=== PATIENT | female | born 1965 | race Two or more races ===

== ENCOUNTER 2019-07-01 12:45 | Emergency (ER) | payer OTHER ==
[~2019-07-01] VITALS: Ht 162.6 cm; Wt 61.7 kg
[~2019-07-01 12:45] MED LIST: NAPR-514 PO; TAMS0.4C97 PO; TRAM50TA PO
--- NOTE | 2019-07-01 13:11 | PHYS DOC ---
Past History Past Medical History: No Pertinent History Past Surgical History: No Surgical History Alcohol Use: Rarely Drug Use: None Adult General Chief Complaint Chief Complaint: Palpitations HPI HPI 54-year-old female presenting the emergency department today with palpitations. She has a history of palpitations in the past. Today she was exercising however after exercising her heart rate would not come down and she was having shortness of breath. She denies any chest pain, just describes palpitations. Onset today. Location chest. Duration intermittent. No alleviating factors. She denies unilateral leg swelling hemoptysis recent surgery or immobilization. She denies history of DVT or PE. Review of systems is negative for chest pain abdominal pain vomiting headache lightheadedness. She denies sick be. All other review of systems negative. ED course: 54-year-old female presenting with palpitations. On arrival patient's heart rate was about 115. Heart rate came down in the emergency department with IV fluids. EKG and blood work ordered along with chest x-ray and d-dimer. X-ray unremarkable. EKG obtained and reviewed by myself shows sinus rhythm with a regular rate. ST segments congruent. Not suggestive of ACS. D-dimer within normal limits. Potassium and magnesium are mildly low. We will give the patient oral repletion of potassium and magnesium. We'll have her follow-up with her primary doctor 1-2 days. She'll need repeat potassium magnesium levels over the next few weeks. HEART SCORE History Slightly suspicious 0 Moderately suspicious +1 Highly suspicious +2 EKG 1 point: No ST depression but LBBB, LVH, repolarization changes (ex: digoxin); 2 points: ST depression/elevation not due to LBBB, LVH, or digoxin Normal 0 Non-specific repolarization disturbance +[address] depression +2 Age <45 0 45-65 +1 65 +2 Risk factors Risk factors: HTN, hypercholesterolemia, DM, obesity (BMI >30 kg/m), smoking (current, or smoking cessation 3 mo), positive family history (parent or sibling with CVD before age 65); atherosclerotic disease: prior IN, PCI/CABG, CVA/TIA, or peripheral arterial disease No known risk factors 0 1-2 risk factors +1 3 risk factors or history of atherosclerotic disease +2 Initial troponin Use local assays and corresponding cutoffs normal limit 0 1-2 normal limit +1 >2 normal limit +2 Total 1 points Wells Score Clinical signs and symptoms of DVT No 0 Yes +3 PE is #1 diagnosis OR equally likely No 0 Yes +3 Heart rate > 100 No 0 Yes +1.5 Immobilization at least 3 days OR surgery in the previous 4 weeks No 0 Yes +1.5 Previous, objectively diagnosed PE or DVT No 0 Yes +1.5 Hemoptysis No 0 Yes +1 Malignancy w/ treatment within 6 months or palliative No 0 Yes +1 TOTAL 1.5 Points Allergies Allergies Allergies Coded Allergies Type Severity Reaction Last Updated Verified No Known Drug Allergies 10/21/15 No Physical Exam Physical Exam Constitutional: Well developed, well nourished, no acute distress, non-toxic appearance. [] HENT: Normocephalic, atraumatic, bilateral external ears normal, oropharynx moist, no oral exudates, nose normal. [] Eyes: PERRLA, EOMI, conjunctiva normal, no discharge. [] Neck: Normal range of motion, no tenderness, supple, no stridor. [] Cardiovascular: Tachycardic with a regular rhythm. No murmur. Lungs & Thorax: Bilateral breath sounds clear to auscultation []. No wheezing. Not in respiratory distress. Normal work of breathing. Abdomen: Bowel sounds normal, soft, no tenderness, no masses, no pulsatile masses. [] Skin: Warm, dry, no erythema, no rash. [] Back: No tenderness, no CVA tenderness. [] Extremities: No tenderness, no cyanosis, no clubbing, ROM intact, no edema. [] Neurologic: Alert and oriented X 3, normal motor function, normal sensory function, no focal deficits noted. [] Psychologic: Affect normal, judgement normal, mood normal. [] EKG EKG [] Radiology/Procedures Radiology/Procedures [] Course & Med Decision Making Course & Med Decision Making Pertinent Labs and Imaging studies reviewed. (See chart for details) [] Dragon Disclaimer Dragon Disclaimer This electronic medical record was generated, in whole or in part, using a voice recognition dictation system. Departure Departure: Impression: Primary Impression: Palpitations Disposition: 01 HOME, SELF-CARE Condition: STABLE Referrals: DLUGOPOLSKI,TC (PCP) Patient Instructions: Palpitations, [id number] Additional Instructions: Thank you for allowing us to participate in your care today. Return to the emergency department you have any new or worsening symptoms, or if you are concerned for any reason. Return to emergency department if you have any new or concerning symptoms including but not limited to fever, chills, nausea, vomiting, intractable pain, any new rashes, chest pain, shortness of air, uncontrolled bleeding, difficulty breathing, and/or vision loss. Follow up with your primary care physician within 1-2 days. Call your Primary Doctor tomorrow and inform them of your visit today. If you do not have a primary care provider we are happy to provide you with a list of our primary care providers contact information. This condition should be evaluated by your primary care physician and any recommended consulting services for continued management within 2 days after discharge. If at any time, you are having difficulty getting into your primary care doctor or a specialist, return to the emergency department. Scripts Potassium Chloride (K-Tab ER) 20 Meq Tablet.er 20 MEQ PO DAILY for low potassium for 10 Days, #10 TAB.SR Prov: ARYAN GLASS MD 07/01/19 Magnesium Oxide (MAGNESIUM) 400 Mg Capsule 1 CAP PO DAILY for LOW MAG for 30 Days, #30 CAP 0 Refills Prov: RAYAN GLASS MD 07/01/19 ARYAN GLASS MD Jul 01, 2019 13:11
[2019-07-01] MEDS ORDERED: IV NORMAL SALINE 1,000ML 1,000 ML IV ONE (13:15)
[2019-07-01 13:25] LABS: BASO % 1 % (0-3); EOS # 0.1 x10^3/uL (0.0-0.7); EOS % 2 % (0-3); HEMATOCRIT 39.5 % (36.0-47.0); HEMOGLOBIN 13.7 g/dL (12.0-15.5); LYMPH # 2.5 x10^3/uL (1.0-4.8); LYMPH % 43 % (24-48); MEAN CORPUSCULAR HEMOGLOBIN 31 pg (25-35); MEAN CORPUSCULAR HGB CONC 35 g/dL (31-37); MEAN CORPUSCULAR VOLUME 90 fL (79-100); MONO # 0.3 x10^3/uL (0.0-1.1); MONO % 5 % (0-9); NEUT # 2.9 x10^3uL (1.8-7.7); NEUT % 50 % (31-73); PLATELET COUNT 294 x10^3/uL (140-400); RED BLOOD COUNT 4.39 x10^6/uL (3.50-5.40); RED CELL DISTRIBUTION WIDTH 12.6 % (11.5-14.5); WHITE BLOOD COUNT 5.8 x10^3/uL (4.0-11.0)
[2019-07-01 13:37] LABS: CALCIUM 9.2 mg/dL (8.5-10.1); CREATININE 0.9 mg/dL (0.6-1.0); DIRECT BILIRUBIN 0.1 mg/dL (0.0-0.2); GFR 65.8; POTASSIUM 3.3 mmol/L (3.5-5.1); TOTAL BILIRUBIN 0.3 mg/dL (0.2-1.0); TOTAL PROTEIN 7.7 g/dL (6.4-8.2)
[2019-07-01 13:41] VITALS: BP 144/82
--- NOTE | 2019-07-01 14:01 | RAD ---
Exam performed: One view chest. Indication: Chest pain Date of Service: 07/01/2019 12:55 PM Comparison: None available. Single AP upright portable view chest findings: Cardiomediastinal silhouette is within limits of normal. No acute infiltrates, effusion or pneumothorax is detected. The bony structures are normal. Impression: No acute cardiopulmonary process is detected. Electronically signed by: Lola Celis MD (07/01/2019 1:57 PM) [facility]
[2019-07-01] MEDS ORDERED: MAGN400C PO (14:12)
[2019-07-01] MEDS ORDERED: POTA20TA84 PO (14:26)
--- NOTE | 2019-07-02 01:27 | EKG ---
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
== END 2019-07-01 14:52 | disposition home or self-care (01) ==
LOC: ER 12:45
DX: R00.2 Palpitations (principal); R06.02 Shortness of breath
CPT/HCPCS: 36415; 71045; 80048; 80076; 83690; 83735; 84484; 85025; 85379; 93005; 99285-25; J7030

== ENCOUNTER 2019-07-10 07:39 | Observation (INO) | payer OTHER ==
[~2019-07-10] VITALS: Ht 160 cm; Wt 61.7 kg
[~2019-07-10 07:39] MED LIST changes: +MAGN400C PO; +POTA20TA84 PO
[2019-07-10] MEDS ORDERED: IV NORMAL SALINE 1,000ML 1,000 ML IV SCH (07:55)
--- NOTE | 2019-07-10 08:00 | PHYS DOC ---
Past History Past Medical History: No Pertinent History Past Surgical History: No Surgical History Alcohol Use: Occasionally Drug Use: None Adult General Chief Complaint Chief Complaint: Palpitations HPI HPI Patient is a 54-year-old female who presents with complaint of chest pain that started yesterday. She states that pain is been fairly mild since onset and she rates it at a 3 out of 10. She does indicate that symptoms get worse with exertion and she feels very short of breath. She states that yesterday just making her bed made her feel exhausted. She denies any nausea, vomiting or diaphoresis. She describes it is like an ache. Patient indicates that she has never had any heart problems. She had been seen in the emergency room for palpitations recently and was prescribed potassium and magnesium.[] Review of Systems Review of Systems Constitutional: Denies fever or chills [] Respiratory: Denies cough or shortness of breath [] Cardiovascular: No additional information not addressed in HPI [] GI: Denies abdominal pain, nausea, vomiting or diarrhea [] Integument: Denies rash or skin lesions [] Neurologic: Denies headache, focal weakness or sensory changes [] All other systems were reviewed and found to be within normal limits, except as documented in this note. Allergies Allergies Allergies Coded Allergies Type Severity Reaction Last Updated Verified No Known Drug Allergies 07/10/19 No Physical Exam Physical Exam Constitutional: Well developed, well nourished, no acute distress, non-toxic appearance. [] HENT: Normocephalic, atraumatic, bilateral external ears normal, oropharynx moist, no oral exudates, nose normal. [] Eyes: PERRLA, EOMI, conjunctiva normal, no discharge. [] Neck: Normal range of motion, no tenderness, supple. [] Cardiovascular: Regular rate and rhythm[] Lungs & Thorax: Bilateral breath sounds clear to auscultation [] Abdomen: Bowel sounds normal, soft, no tenderness. [] Skin: Warm, dry, no erythema, no rash. [] Extremities: No tenderness, no cyanosis, no clubbing, ROM intact. [] Neurologic: Alert and oriented X 3, no focal deficits noted. [] Current Patient Data Vital Signs Vital Signs Date Time Temp Pulse Resp B/P (MAP) Pulse Ox O2 Delivery O2 Flow Rate FiO2 07/10/19 07:50 98.5 68 16 100 Room Air EKG EKG EKG demonstrates normal sinus rhythm with rate of 63.[] Radiology/Procedures Radiology/Procedures [] Impressions: PROCEDURE: PORTABLE CHEST 1V PORTABLE CHEST 1V History: Chest pain Comparison: July 01, 2019 Findings: No consolidation or pleural effusion. Normal heart size. Impression: 1. No acute cardiopulmonary process. Electronically signed by: Fahad Hancock DO (07/10/2019 8:37 AM) [facility] Course & Med Decision Making Course & Med Decision Making Pertinent Labs and Imaging studies reviewed. (See chart for details) [] Dragon Disclaimer Dragon Disclaimer This electronic medical record was generated, in whole or in part, using a voice recognition dictation system. Departure Departure: Impression: Primary Impression: Chest pain Additional Impression: Palpitations Disposition: ADMITTED INPATIENT Admitting Physician: Fozia Rivero Condition: IMPROVED Referrals: TC BARKER (PCP) Problem Qualifiers Primary Impression: Chest pain Chest pain type: unspecified Qualified Codes: R07.9 - Chest pain, unspecified AYAAN VALENTINE Jr., DO Jul 10, 2019 08:00
[2019-07-10 08:26] LABS: BASO % 1 % (0-3); EOS # 0.1 x10^3/uL (0.0-0.7); EOS % 2 % (0-3); HEMATOCRIT 38.4 % (36.0-47.0); HEMOGLOBIN 13.3 g/dL (12.0-15.5); LYMPH # 1.4 x10^3/uL (1.0-4.8); LYMPH % 33 % (24-48); MEAN CORPUSCULAR HEMOGLOBIN 31 pg (25-35); MEAN CORPUSCULAR HGB CONC 35 g/dL (31-37); MEAN CORPUSCULAR VOLUME 90 fL (79-100); MONO # 0.2 x10^3/uL (0.0-1.1); MONO % 5 % (0-9); NEUT # 2.5 x10^3uL (1.8-7.7); NEUT % 59 % (31-73); PLATELET COUNT 245 x10^3/uL (140-400); RED BLOOD COUNT 4.26 x10^6/uL (3.50-5.40); RED CELL DISTRIBUTION WIDTH 12.5 % (11.5-14.5); WHITE BLOOD COUNT 4.3 x10^3/uL (4.0-11.0)
--- NOTE | 2019-07-10 08:40 | RAD ---
PORTABLE CHEST 1V History: Chest pain Comparison: July 01, 2019 Findings: No consolidation or pleural effusion. Normal heart size. Impression: 1. No acute cardiopulmonary process. Electronically signed by: Fahad Hancock DO (07/10/2019 8:37 AM) [facility]
[2019-07-10 08:43] LABS: ALBUMIN 4.1 g/dL (3.4-5.0); ALBUMIN/GLOBULIN RATIO 1.2 (1.0-1.7); CALCIUM 8.9 mg/dL (8.5-10.1); CREATININE 0.6 mg/dL (0.6-1.0); POTASSIUM 3.8 mmol/L (3.5-5.1); TOTAL BILIRUBIN 0.5 mg/dL (0.2-1.0); TOTAL PROTEIN 7.5 g/dL (6.4-8.2)
[2019-07-10] MEDS ORDERED: MORPHINE SULFATE 2 MG/ML DISP.SYRIN. IV PRN (10:15)
[2019-07-10] MEDS ORDERED: ONDANSETRON PF 4 MG/2 ML VIAL. IV PRN (10:15)
[2019-07-10] MEDS ORDERED: NITROGLYCERIN SUBLINGUAL 0.4 MG BOTTLE OF 25. SL PRN (10:15)
[2019-07-10 11:45] LABS: BACTERIA,URINE MANY /HPF (0-FEW); BILIRUBIN,URINE NEG (NEG); CLARITY,URINE CLOUDY; COLOR,URINE STRAW; GLUCOSE,URINE NEG (NEG); NITRITE,URINE POS (NEG); SQUAMOUS EPITHELIAL CELL,UR MANY /LPF; UROBILINOGEN,URINE 0.2 mg/dL (0.2 mg/dL); WBC,URINE 20-40 /HPF (0-4)
--- NOTE | 2019-07-10 12:30 | EKG ---
[address] [address] Test Date: 2019-07-10 Test Time: 09:01:48 Pat Name: DIONNE NOVA Department: Room: Gender: F Paste Maker: : 1965 Requested By: AYAAN VALENTINE Order Number: [id number] Reading MD: Timbo Wheeler MD Measurements Intervals [place] Rate: 63 P: 37 AR: 144 QRS: 62 QRSD: 82 T: 34 QT: 398 QTc: 410 Interpretive Statements SINUS RHYTHM No previous ECG available for comparison Electronically Signed On 07-10-2019 22:52:08 CDT by Timbo Wheeler MD
[2019-07-10] MEDS ORDERED: KETOROLAC 15 MG/ML VIAL. ONE (13:49)
[2019-07-10] MEDS ORDERED: KETOROLAC 15 MG/ML VIAL. IVP ONE (14:00)
[2019-07-10 14:32] VITALS: BP 110/73
--- NOTE | 2019-07-10 16:48 | HP ---
ADMIT DATE: 07/10/2019 HISTORY OF PRESENT ILLNESS: The patient is a 54-year-old female patient who came to the Emergency Room with a complaint of chest pain that started yesterday. She said the pain has been fairly mild since onset. Today, she rates it as 3/10 in severity. She does indicate symptoms get worse with exertion and she feels very short of breath. She states that yesterday just making her bed made her feel exhausted. She denies any nausea, vomiting or diaphoresis, described it like an ache. The patient indicates that she has never had any heart problems. She had been seen in the Emergency Room for palpitations recently, was prescribed potassium and magnesium. She was in fact seen on 07/01/2019. At that time, she was diagnosed with palpitation and apparently was found to have hypokalemia and hypomagnesemia. Her potassium was only 3.3 and magnesium was 1.6. Her blood sugar was slightly high at that time and she was given potassium and magnesium supplement and was discharged home. She apparently was evaluated today in the Emergency Room and her lab work showed that her potassium and magnesium are well within normal range. She has no leukocytosis. Her first set of cardiac enzyme was less than 0.017, was admitted to do 2 more sets of cardiac enzymes, check her lipid profile and consult the nursing program manager. PAST MEDICAL HISTORY: Significant for thyroid nodule. Apparently, she has had thyroid function checked twice before, was told borderline. She has also bursitis and generalized osteoarthritis. PAST SURGICAL HISTORY: Unremarkable. ALLERGIES: She has no known drug allergies. MEDICATIONS: She is currently on potassium chloride 20 mEq once a day, magnesium oxide 400 mg once a day. She is also on tramadol 50 mg every 4-6 hours, naproxen 500 mg twice a day and Flomax 0.4 mg daily. FAMILY HISTORY: She has 2 brothers and 3 sisters, the older brother has seizures and older sister have thyroid disease, diabetes and eye disease due to diabetic retinopathy. Others are healthy. Her father at the age of 74 because of complication of end-stage renal disease, on hemodialysis. Her mother is alive at age of 82 and is known to have hyperlipidemia. SOCIAL HISTORY: She is . She has a son and a daughter from her previous marriage. She never smoked and drinks 2-3 drinks of alcohol per week. She does not use any drugs. 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 REVIEW OF SYSTEMS: She denied any blurring of vision, cataract, glaucoma or macular degeneration. Denied any earache, tinnitus or sensorineural deafness. Denied any nosebleeds, stuffy nose or postnasal drip. Denied any sore throat, sore tongue, toothache, hoarseness of voice or difficulty swallowing. Denied any nausea, vomiting, diarrhea or constipation. Denied any hematemesis, melena or hematochezia. Denied any dysuria, frequency or hematuria. Did complain of chest pain that is constant. It is aggravated by exertion. It is not associated with any nausea, vomiting or diaphoresis; associated with shortness of breath. Denied any orthopnea or paroxysmal nocturnal dyspnea. Denied any cough, phlegm or hemoptysis. Denied any chills, rigors or fever. She said that she feels dizzy or fainting. She says she sits down. PHYSICAL EXAMINATION: GENERAL: On arrival to the Emergency Room, the patient looked well and was clearly in no apparent respiratory distress. No pallor, jaundice, cyanosis or thyromegaly. No jugular venous distension. No lower limb edema. VITAL SIGNS: Her heart rate was 68, blood pressure was 103/70, temperature was 98.5, respiratory rate was 16, and oxygen saturation was 100% on room air. HEAD, EYES, EARS, NOSE AND THROAT: Showed normocephalic, atraumatic. NECK: Supple. HEART: Showed normal first and second heart sounds. No gallop or murmur. CHEST: Clear to auscultation. No crepitation or rhonchi. ABDOMEN: Distended, soft, nontender. NEUROLOGIC: She is awake, alert, responding appropriately. All cranial nerves intact. EXTREMITIES: She moves extremities without difficulty. She ambulates without assistance or assistive devices. Examination of the extremities, especially her hands were very clammy; however, I could not see any tremors. LABORATORY DATA: Her lab work showed a white cell count of 4300, hemoglobin 13.3, hematocrit 38, MCV 90 and platelet count of 245,000 with normal manual differential. Her chemistry showed a serum sodium 142, potassium 3.8, chloride 105, bicarbonate 28, anion gap of 9, BUN 17, creatinine 0.6, estimated GFR was 105 mL per minute. Her glucose 102, calcium was 8.9, magnesium 2. Total bilirubin, AST, ALT, alkaline phosphatase were normal. Her troponin was less than 0.017. Total protein was 7.5, albumin was 4.1. Her D-dimer was less than 0.19. Urinalysis did show urine to be cloudy with a pH of 7, specific gravity of 1.015. The urine was negative for protein, glucose, ketones, small amount of blood, positive for nitrite and there was large amount of leukocyte esterase, 6-10 rbc's, 20-40 wbc's, and many bacteria. Her urine test was negative. Her chest x-ray showed that she has no consolidation, pleural effusion, normal heart size. ASSESSMENT AND PLAN: In summary, this is a 54-year-old female patient who came to the Emergency Room with chest pain that rated as low intensity about 2-3/10 associated with shortness of breath, aggravated by exertion. She also had an episode of palpitation for which she was seen in the Emergency Room about 2 weeks ago. She has a thyroid nodule. However, she has thyroid function test done twice before, according to her it was borderline and did not require any treatment or supplementation. The only abnormality in her labs is actually the fact that her urine is positive for nitrite, leukocyte esterase, and there are 20-40 wbc's, large amount of bacteria consistent with urinary tract infection. She has obviously an episode of hypomagnesemia and hypokalemia that has resolved. We will do 2 more sets of cardiac enzyme. I will definitely start her on Rocephin and we will check her thyroid function test as well as sed rate and CRP and decide the further management accordingly. PRASANNA JOHNSTON MD DR: GALI/stella JOB#: [id number] / [id number]
[2019-07-10 20:56] VITALS: BP 91/59
[2019-07-10] MEDS ORDERED: FLU VAX QS 2019-20 (36MOS+)/PF 0.5 ML SYRINGE. VAX IM ONE (21:00)
[2019-07-10 23:17] VITALS: BP 98/60
[2019-07-11 05:55] VITALS: BP 95/59
[2019-07-11 06:57] LABS: CALCIUM 8.5 mg/dL (8.5-10.1); CREATININE 0.6 mg/dL (0.6-1.0)
--- NOTE | 2019-07-11 08:13 | PDOC2 ---
CARDIAC CONSULT DATE OF CONSULT Date Of Consult DATE: 07/11/19 TIME: 08:09 REASON FOR CONSULT Reason for Consult Chest pain REFERRING PHYSICIAN Referring Physician Dr. Fierro SOURCE Source: Chart review, Patient HPI History of Present Illness This is a 54 yo female who presented secondary to chest pain. Patient reports experiencing palpitations a week and a half ago that was associated with dizziness and tingling in her bilateral hands. Patient reports she was able to deep breath and relax, which made the symptoms subside. Was seen in the ED and workup was benign. Yesterday while driving to work, she began having dull ache in the center of her chest. Sheldon as if she couldn't take a deep breath, especially through her nose. Reports feeling anxious, which seemed to worsen symptoms and she began feeling lightheaded. No palpitations, diaphoresis, or nausea/vomiting. Friend brought her to the ED for further evaluation and treatment at [facility]. Work there was also benign, but patient was transferred to [facility] as patient felt more comfortable being monitored overnight. Pain improved following laying down and relaxing. PAST MEDICAL HISTORY Musculoskeletal: Osteoarthritis Endocrine: Other (thyroid nodules) PAST SURGICAL HISTORY Past Surgical History: Other FAMILY HISTORY Family History: Diabetes SOCIAL HISTORY Smoke: No ALCOHOL: occassional Drugs: None Lives: with Family CURRENT MEDICATIONS Current Medications Current Medications Sodium Chloride 1,000 ml @ 1,000 mls/hr Q1H IV Last administered on 07/10/19at 08:15; Start 07/10/19 at 07:55; Stop 07/10/19 at 08:54; Status DC Ondansetron HCl (Zofran) 4 mg PRN Q4HRS PRN IV NAUSEA/VOMITING; Start 07/10/19 at 10:15; Stop 07/11/19 at 10:14 Morphine Sulfate (Morphine 2mg Syringe) 2 mg PRN Q2HR PRN IV PAIN; Start 07/10/19 at 10:15; Stop 07/11/19 at 10:14 Nitroglycerin (Nitrostat) 0.4 mg PRN Q5MIN PRN SL CHEST PAIN; Start 07/10/19 at 10:15; Stop 07/11/19 at 10:14 Ketorolac Tromethamine (Toradol 15mg Vial) 15 mg 1X ONCE IVP Last administered on 07/10/19at 13:51; Start 07/10/19 at 14:00; Stop 07/10/19 at 14:01; Status DC Ketorolac Tromethamine (Toradol 15mg Vial) 15 mg STK-MED ONCE .ROUTE ; Start 07/10/19 at 13:49; Stop 07/10/19 at 13:50; Status DC Ceftriaxone Sodium 1 gm/ Sodium Chloride 50 ml @ 100 mls/hr Q24H IV Last administered on 07/10/19at 17:00; Start 07/10/19 at 16:00 Influenza Virus Vaccine Quadrival (Afluria Quad 2019-20 (3yr Up) Syringe) 0.5 ml 1X ONCE VAX IM Last administered on 07/10/19at 21:43; Start 07/10/19 at 21:00; Stop 07/10/19 at 21:01; Status DC Active Scripts Active K-Tab ER (Potassium Chloride) 20 Meq Tablet.er 20 Meq PO DAILY 10 Days Magnesium (Magnesium Oxide) 400 Mg Capsule 1 Cap PO DAILY 30 Days Flomax (Tamsulosin Hcl) 0.4 Mg Cap.er.24h 1 Cap PO DAILY Tramadol Hcl (Tramadol HCl) 50 Mg Tablet 50 Mg PO Q4-6HRS PRN Naproxen 500 Mg Tablet 500 Mg PO BID ALLERGIES Allergies: Coded Allergies: No Known Drug Allergies (Unverified , 07/10/19) ROS Review of Systems 14 point ROS conducted with pertinent positives noted above in HPI PHYSICAL EXAM General: Alert, Oriented X3, Cooperative, No acute distress HEENT: Atraumatic, Mucous membr. moist/pink Lungs: Clear to auscultation, Normal air movement Heart: Regular rate, Normal S1, Normal S2, No murmurs Abdomen: Soft, No tenderness Extremities: No edema, Normal pulses Skin: No rashes, No breakdown Neuro: Normal speech, Sensation intact Psych/Mental Status: Mental status NL, Mood NL MUSCULOSKELETAL: No deformity VITALS Vital Signs Vital Signs Date Time Temp Pulse Resp B/P (MAP) Pulse Ox O2 Delivery O2 Flow Rate FiO2 07/11/19 05:55 97.4 61 18 95/59 (71) 99 07/10/19 14:32 Room Air LABS LABS Laboratory Tests Test 07/10/19 08:10 07/10/19 11:25 07/10/19 12:08 07/10/19 16:00 White Blood Count 4.3 x10^3/uL (4.0-11.0) Red Blood Count 4.26 x10^6/uL (3.50-5.40) Hemoglobin 13.3 g/dL (12.0-15.5) Hematocrit 38.4 % (36.0-47.0) Mean Corpuscular Volume 90 fL (79-100) Mean Corpuscular Hemoglobin 31 pg (25-35) Mean Corpuscular Hemoglobin Concent 35 g/dL (31-37) Red Cell Distribution Width 12.5 % (11.5-14.5) Platelet Count 245 x10^3/uL (140-400) Neutrophils (%) (Auto) 59 % (31-73) Lymphocytes (%) (Auto) 33 % (24-48) Monocytes (%) (Auto) 5 % (0-9) Eosinophils (%) (Auto) 2 % (0-3) Basophils (%) (Auto) 1 % (0-3) Neutrophils # (Auto) 2.5 x10^3uL (1.8-7.7) Lymphocytes # (Auto) 1.4 x10^3/uL (1.0-4.8) Monocytes # (Auto) 0.2 x10^3/uL (0.0-1.1) Eosinophils # (Auto) 0.1 x10^3/uL (0.0-0.7) Basophils # (Auto) 0.0 x10^3/uL (0.0-0.2) D-Dimer (Luci) < 0.19 mg/L (0.00-0.50) Sodium Level 142 mmol/L (136-145) Potassium Level 3.8 mmol/L (3.5-5.1) Chloride Level 105 mmol/L (98-107) Carbon Dioxide Level 28 mmol/L (21-32) Anion Gap 9 (6-14) Blood Urea Nitrogen 17 mg/dL (7-20) Creatinine 0.6 mg/dL (0.6-1.0) Estimated GFR (Cockcroft-Gault) 105.0 BUN/Creatinine Ratio 28 (6-20) Glucose Level 102 mg/dL (70-99) Calcium Level 8.9 mg/dL (8.5-10.1) Magnesium Level 2.0 mg/dL (1.8-2.4) Total Bilirubin 0.5 mg/dL (0.2-1.0) Aspartate Amino Transf (AST/SGOT) 15 U/L (15-37) Alanine Aminotransferase (ALT/SGPT) 17 U/L (14-59) Alkaline Phosphatase 82 U/L (46-116) Troponin I Quantitative < 0.017 ng/mL (0-0.055) < 0.017 ng/mL (0-0.055) CC-Qxf-Y-Type Natriuretic Peptide 78 pg/mL (0-124) Total Protein 7.5 g/dL (6.4-8.2) Albumin 4.1 g/dL (3.4-5.0) Albumin/Globulin Ratio 1.2 (1.0-1.7) Urine Collection Type Unknown Urine Color Straw Urine Clarity Cloudy Urine pH 7.0 Urine Specific Lares 1.015 Urine Protein Neg (NEG-TRACE) Urine Glucose (UA) Neg mg/dL (NEG) Urine Ketones (Stick) Neg mg/dL (NEG) Urine Blood Small (NEG) Urine Nitrite Pos (NEG) Urine Bilirubin Neg (NEG) Urine Urobilinogen Dipstick 0.2 mg/dL (0.2 mg/dL) Urine Leukocyte Esterase Large (NEG) Urine RBC 6-10 /HPF (0-2) Urine WBC 20-40 /HPF (0-4) Urine Squamous Epithelial Cells Many /LPF Urine Bacteria Many /HPF (0-FEW) Bedside Urine HCG, Qualitative hcg negative (Negative) Test 07/10/19 20:40 07/11/19 00:35 07/11/19 06:12 Troponin I Quantitative < 0.017 ng/mL (0-0.055) < 0.017 ng/mL (0-0.055) Erythrocyte Sedimentation Rate 8 (0-25) Sodium Level 143 mmol/L (136-145) Potassium Level 4.0 mmol/L (3.5-5.1) Chloride Level 108 mmol/L (98-107) Carbon Dioxide Level 27 mmol/L (21-32) Anion Gap 8 (6-14) Blood Urea Nitrogen 16 mg/dL (7-20) Creatinine 0.6 mg/dL (0.6-1.0) Estimated GFR (Cockcroft-Gault) 105.0 Glucose Level 99 mg/dL (70-99) Calcium Level 8.5 mg/dL (8.5-10.1) C-Reactive Protein 1.0 mg/L (0-3.3) ASSESSMENT/PLAN Assessment/Plan 1. Chest pain, atypical; AMI ruled out. Most probably secondary to anxiety 2. UTI 3. Anxiety 4. Palpitations 5. Thyroid nodules Recommendations Very low risk presentation and workup benign, aside from UTI. Outpatient echo discussed, but patient requesting further evaluation to be conducted now as an inpatient due to her associated anxiety. May discharge later this afternoon from a CV standpoint Could consider outpatient event monitor if palpitations recurrent KEYONA STAUFFER APRN Jul 11, 2019 08:13
[2019-07-11 11:22] VITALS: BP 92/60
[2019-07-11] MEDS ORDERED: IOHEXOL 300 MG/ML 75 ML VIAL. IV ONE (12:00)
--- NOTE | 2019-07-11 12:02 | CARD ---
MR#: [id number] Date of Study: 07/11/2019 Ordering Physician: KEYONA STAUFFER, Referring Physician: KEYONA STAUFFER, Tech: Davina Willis JOSIAH APPROVED REPORT EXAM: Two-dimensional and M-mode echocardiogram with Doppler and color Doppler. Other Information Quality : AverageHR: 73bpm Rhythm : NSR INDICATION Chest Pain 2D DIMENSIONS RVDd2.9 (2.9-3.5cm)Left Atrium(2D)3.0 (1.6-4.0cm) IVSd0.7 (0.7-1.1cm)Aortic Root(2D)2.5 (2.0-3.7cm) LVDd4.0 (3.9-5.9cm)PWd0.9 (0.7-1.1cm) LVDs2.7 (2.5-4.0cm)FS (%) 33.6 % SV44.9 mlLVEF(%)63.0 (>50%) M-Mode DIMENSIONS Left Atrium(MM)2.80 (2.5-4.0cm)Aortic Root2.53 (2.2-3.7cm) Aortic Valve AoV Peak Chele.138.4cm/sAoV VTI22.6cm AO Peak GR.7.7mmHgAO Mean GR.3mmHg VIRY (VTI)1.74cm2 Mitral Valve MV E Fhacizrl22.8cm/sMV DECEL [id number] MV A Ioupydnc39.1cm/sE/A Ratio1.0 MV A [id number] Tricuspid Valve TR P. [id number]/sRAP [id number] TR Peak Gr.63mvFiKHFL75kzOw LEFT VENTRICLE The left ventricle is normal size. There is normal left ventricular wall thickness. The left ventricu lar systolic function is normal and the ejection fraction is within normal range. The Ejection Fracti on is 60-65%. There is normal LV segmental wall motion. The left ventricular diastolic function and f illing is normal for age. RIGHT VENTRICLE The right ventricle is normal size. There is normal right ventricular wall thickness. The right ventr icular systolic function is normal. ATRIA The left atrium size is normal. The right atrium size is normal. The interatrial septum is intact wit h no evidence for an atrial septal defect or patent foramen ovale as noted on 2-D or Doppler imaging. AORTIC VALVE The aortic valve is normal in structure and function. The aortic valve is trileaflet. Doppler and Col or Flow revealed no significant aortic regurgitation. There is no significant aortic valvular stenosi s. There is no aortic valvular vegetation. MITRAL VALVE The mitral valve is normal in structure and function. There is no evidence of mitral valve prolapse. There is no mitral valve stenosis. Doppler and Color Flow revealed no mitral valve regurgitation note d. TRICUSPID VALVE The tricuspid valve is normal in structure and function. Doppler and Color Flow revealed trace tricus pid regurgitation. The PA pressure was estimated at 25 mmHg. There is no tricuspid valve prolapse or vegetation. There is no tricuspid valve stenosis. PULMONIC VALVE The pulmonic valve is not well visualized. GREAT VESSELS The aortic root is normal in size. The ascending aorta is normal in size. The IVC is normal in size a nd collapses >50% with inspiration. PERICARDIAL EFFUSION There is no evidence of significant pericardial effusion. Critical Notification Critical Value: No <Conclusion> The left ventricle is normal size. The left ventricular systolic function is normal and the ejection fraction is within normal range. The Ejection Fraction is 60-65%. There is no significant aortic valvular stenosis. Doppler and Color Flow revealed no significant aortic regurgitation. Doppler and Color Flow revealed no mitral valve regurgitation noted. Doppler and Color Flow revealed trace tricuspid regurgitation. The PA pressure was estimated at 25 mmHg. Signed by : Malvin Suero MD Electronically Approved : 07/11/2019 12:01:18
--- NOTE | 2019-07-11 12:56 | RAD ---
CT SOFT TISSUE NECK W/CONTRAST History: Thyroid nodule. Shortness of breath. Technique: CT imaging was performed of the neck soft tissues with contrast. Coronal and sagittal reconstructions were performed. Contrast: 75 mL Omnipaque 300 IV contrast. Exposure: One or more of the following individualized dose reduction techniques were utilized for this examination: 1. Automated exposure control 2. Adjustment of the mA and/or kV according to patient size 3. Use of iterative reconstruction technique. Comparison: None Findings: Normal appearance of the bilateral submandibular and parotid glands. Solid left inferior isthmus nodule measures 1.0 cm x 0.7 cm. Corresponds with patient's palpable abnormality as marker was placed on the overlying skin. Patent airway. No evidence of mass effect. Normal-appearing laryngeal structures. No pathologic lymphadenopathy. Imaged lung apices are unremarkable. Imaged paranasal sinuses and mastoid air cells are clear. Imaged orbits and intracranial contents are unremarkable. Right TMJ arthropathy. Impression: 1. Small left inferior isthmus solid thyroid nodule. No evidence of mass effect. Recommend ultrasound to further evaluate. Electronically signed by: Fahad Hancock DO (07/11/2019 12:54 PM) [facility]
[2019-07-11] MEDS ORDERED: FEXO180T81 PO (15:23)
[2019-07-11] MEDS ORDERED: CEFD300C PO (15:23)
--- NOTE | 2019-07-11 18:45 | DS ---
DATE OF DISCHARGE: 07/11/2019 HOSPITAL COURSE: The patient is a 54-year-old female patient who came to the Emergency Room with a complaint of palpitation as well as chest pain. She was extensively investigated and has had 3 sets of cardiac enzymes that ruled out myocardial infarction. She did have an echocardiogram, which showed that she has normal left ventricular systolic function, normal ejection fraction of 60-65%, no significant aortic valvular stenosis or regurgitation, no mitral valve regurgitation is noted and trace tricuspid regurgitation. Pulmonary artery pressure was estimated at 25 mmHg. She was also complaining that the thyroid nodule is causing pressure on her trachea, so we did actually soft tissue scan of the neck with contrast and it did show that the patient has normal appearance of bilateral submandibular and parotid glands. She has solid left inferior isthmus nodule measures 1 x 0.7 cm corresponds to the patient's palpable abnormality as marker was placed on the overlying skin patent airways. No evidence of mass effect. Normal appearing laryngeal structures. No pathologic lymphadenopathy. Images of the lung apices are unremarkable. Imaged paranasal sinuses and mastoid air cells are clear. Imaged orbits and intracranial contents are unremarkable. She has right temporomandibular joint arthropathy. The patient's thyroid function was checked, also on her thyroid gland TSH was 1.678 indicating that she is both clinically and biochemically euthyroid. The patient was discharged home to follow with her primary care physician with a recommendation to do a thyroid nuclear scan to find out the nature of the nodule with the hot or cold nodule. PHYSICAL EXAMINATION: GENERAL: When I examined her this afternoon, she looked well and was clearly in no apparent respiratory distress. No pallor, jaundice, cyanosis or thyromegaly. No jugular venous distention or limb edema; however, no lymphedema. VITAL SIGNS: Her heart rate was 70, blood pressure was 92/60, temperature was 98.3, respiratory rate was 20 and oxygen saturation was 96%. The rest of clinical exam is stable. LABORATORY DATA: Her lab work showed a serum sodium 143, potassium 4, chloride 108, bicarbonate 27, anion gap of 8, BUN 16, creatinine 0.6, estimated GFR was 105 mL per minute. Her glucose was 99, calcium was 8.5 and her C-reactive protein was 1. Her hemoglobin and hematocrit were 13 and 38 with normal white cell count and platelets. Sedimentation rate was 8. DISCHARGE MEDICATIONS: The patient was discharged home to continue on cefdinir 300 mg twice a day for UTI, fexofenadine or Lori 180 mg once a day. She is to continue on magnesium oxide 400 mg once a day, naproxen 500 mg twice a day as needed, potassium chloride 20 mEq once a day, tamsulosin or Flomax 0.4 mg at bedtime and tramadol 50 mg every 4-6 hours as needed for severe pain. FINAL DISCHARGE DIAGNOSES: Chest pain, atypical; acute myocardial infarction was ruled out; urinary tract infection; anxiety and thyroid nodule. PRASANNA JOHNSTON MD DR: GALI/stella JOB#: [id number] / [id number]
== END 2019-07-11 17:32 | disposition home or self-care (01) ==
LOC: ER 07:39 → 1 SOUTH 10:00 → INTOOBSV 10:00
PROVIDERS: ADMIT Internal Medicine; ATTEND Internal Medicine
DX: R07.89 Other chest pain (principal); R00.2 Palpitations; E04.2 Nontoxic multinodular goiter; N39.0 Urinary tract infection, site not specified; F41.9 Anxiety disorder, unspecified; M15.9 Polyosteoarthritis, unspecified; Z79.899 Other long term (current) drug therapy; Z23 Encounter for immunization
CPT/HCPCS: 36415; 70491; 71045; 80048; 80053; 80061; 81001; 81025; 83735; 83880; 84443; 84484; 85025; 85379; 85651; 86140; 87086; 90471; 90686; 93005; 93306; 96365; 96375; 99284; G0378; G0379; J0696; J1885; Q9967; 87186; J7030